=== PATIENT | male | born 1975 | race Caucasian/White ===

== ENCOUNTER 2016-10-22 09:07 | Emergency (ER) | payer OTHER ==
[~2016-10-22] VITALS: Ht 182.9 cm; Wt 127.0 kg
[2016-10-22 09:23] VITALS: BP 150/110
[2016-10-22] MEDS ORDERED: KETOROLAC TROMETH 60MG/2ML VIAL IM ONE (09:45)
== END 2016-10-22 10:55 | disposition home or self-care (01) ==
LOC: ER 09:07
DX: M48.06 Spinal stenosis, lumbar region (principal); M54.16 Radiculopathy, lumbar region
CPT/HCPCS: 72131; 96372; 99284; J1885

== ENCOUNTER 2020-12-21 13:08 | Emergency (ER) | payer OTHER ==
[~2020-12-21] VITALS: Ht 182.9 cm; Wt 136.1 kg
[2020-12-21] MEDS ORDERED: LIDOCAINE 1% HCL (LOCAL ANESTH.) INJ 20ML MDV IJ ONE (14:30)
[2020-12-21] MEDS ORDERED: TETANUS-DIPTH-ACEL PERTUSSIS 0.5ML SYR Tdap IM ONE (15:15)
[2020-12-21 15:35] VITALS: BP 123/78
== END 2020-12-21 15:47 | disposition home or self-care (01) ==
LOC: ER 13:08 → EDBD 13:08 → ER 15:47
DX: S81.811A Laceration without foreign body, right lower leg, initial encounter (principal); I10 Essential (primary) hypertension; W23.0XXA Caught, crushed, jammed, or pinched between moving objects, initial encounter; Y93.I9 Activity, other involving external motion; Y92.89 Other specified places as the place of occurrence of the external cause; Y99.8 Other external cause status
CPT/HCPCS: 12005; 90471; 90715; 99283; J2001